=== PATIENT | female | born 1980 | race Caucasian/White ===

== ENCOUNTER 2024-07-21 21:23 | Emergency (ER) | payer MEDICAID ==
[~2024-07-21] VITALS: Ht 157.5 cm; Wt 85.0 kg
[2024-07-21 21:50] VITALS: TEMP 98.2; O2SAT 100
[2024-07-21 23:17] LABS: BASOPHILS % 0.2 % (0.0-2.0); EOSINOPHILS % 0.2 % (0.0-5.0); HEMATOCRIT. 38.4 % (36.0-48.0); HEMOGLOBIN. 12.7 g/dL (12.0-16.0); LYMPHOCYTES % 9.3 % (20.0-50.0); MEAN CORPUSCULAR HEMOGLOBIN 28.9 pg (28.0-32.0); MEAN CORPUSCULAR HGB CONC 33.2 g/dL (31.0-37.0); MEAN CORPUSCULAR VOLUME 86.9 fL (81.0-99.0); MEAN PLATELET VOLUME 8.7 fl (7.4-10.4); NEUTROPHILS % 83.3 % (40.0-76.0); PLATELET 330 x1000/uL (130-400); RED BLOOD CELL COUNT 4.41 mill/uL (4.2-5.4); RED CELL DISTRIBUTION WIDTH 14.3 % (11.6-14.6); WHITE BLOOD COUNT 12.6 x1000/uL (4.5-11.0)
[2024-07-21 23:24] LABS: CHLORIDE 101 mEq/L (98-107); CLARITY URINE CLOUDY (CLEAR); COLOR URINE YELLOW (YELLOW); GLUCOSE URINE 3+ (NEGATIVE); INR 0.9; KETONES URINE NEGATIVE (NEGATIVE); LEUKOCYTE ESTERASE URINE NEGATIVE (NEGATIVE); NITRITE URINE NEGATIVE (NEGATIVE); OCCULT BLOOD URINE NEGATIVE (NEGATIVE); POTASSIUM 3.7 mEq/L (3.5-5.1); PROTEIN URINE NEGATIVE (NEGATIVE); PROTHROMBIN TIME 10.6 sec (9.6-11.0); SODIUM 136 mEq/L (136-145); UROBILINOGEN URINE 0.2 E.U./dL (0.2-1.0)
[2024-07-21 23:25] LABS: CALCIUM 9.1 mg/dL (8.7-10.4); CARBON DIOXIDE 28 mEq/L (21-32)
[2024-07-21 23:28] LABS: HCG SCREEN NEGATIVE
[2024-07-21 23:30] LABS: CREATININE 0.7 mg/dL (0.6-1.0); UREA NITROGEN BLOOD 17 mg/dL (9-23)
[2024-07-21 23:32] LABS: ALANINE AMINOTRANSFERASE 46 IU/L (10-49); ALBUMIN 4.1 g/dL (3.2-4.8); ASPARTATE AMINOTRANSFERASE 22 IU/L (<34); BILIRUBIN DIRECT 0.3 mg/dL (<=3.0)
[2024-07-21 23:33] LABS: PROTEIN TOTAL 6.9 g/dL (6.0-8.3)
[2024-07-21 23:43] LABS: *AMPHETAMINES SCREEN URINE NEGATIVE (NEGATIVE); *BARBITURATES SCREEN URINE NEGATIVE (NEGATIVE); *BENZODIAZEPINES SCREEN URINE NEGATIVE (NEGATIVE); *COCAINE SCREEN URINE NEGATIVE (NEGATIVE); CANNABINOID URINE SCREEN NEGATIVE (NEGATIVE); ECSTASY MDMA SCREEN URINE NEGATIVE (NEGATIVE); METHADONE URINE SCREEN NEGATIVE (NEGATIVE); OPIATES URINE SCREEN NEGATIVE (NEGATIVE); PHENCYCLIDINE URINE SCREEN NEGATIVE (NEGATIVE)
[2024-07-21 23:50] LABS: ETHANOL BLOOD < 10 mg/dL (<10)
[2024-07-22 00:03] LABS: GLUCOSE 460 mg/dL (70-105)
[2024-07-22 00:27] LABS: WBC URINE 0-2 /hpf (0-2)
[2024-07-22 00:28] LABS: BACTERIA URINE TRACE; RBC URINE 0-2 /hpf (0-2); SQUAMOUS EPITHELIAL CELL URINE 1+ /lpf (RARE/1+)
[2024-07-22] MEDS: INSULIN REGULAR (HUMULIN R) 1000UNITS/10ML VIAL SUBCUT NR (00:30)
[2024-07-22 02:54] LABS: TROPONIN I HIGH SENSITIVITY 174 ng/L (3.0-34)
[2024-07-22 03:20] VITALS: BP 148/90; PULSE 89; RESP 14; O2SAT 95
== END 2024-07-22 03:48 | disposition home or self-care (01) ==
LOC: ER 21:23
DX: E11.65 Type 2 diabetes mellitus with hyperglycemia (principal); R55 Syncope and collapse; R42 Dizziness and giddiness
CPT/HCPCS: 80076; 80305; 80048; 81003; 80320; 84703; 83690; 85025; 85610; 36415 ×2; 71045; 93005; 99285; 82962; 83880; 84484; 96372; J1815; G0480